=== PATIENT | female | born 1970 | race Caucasian/White ===

== ENCOUNTER 2018-06-12 19:30 | Inpatient (IN) | payer BC, OTHER ==
[~2018-06-12] VITALS: Ht 170.2 cm; Wt 66.2 kg
--- NOTE | 2018-06-12 19:47 | NUR ---
PT TO ER BED 5. BIBRA FROM HOME FOR OVERDOSE OF TRAZADONE X 10 PILLS. AT BEDSIDE. STATES PT HAD BEEN SLEEPING SINCE 1300 TODAY, HE WENT IN A HOUR AGO TO TRY TO WAKE HER UP. STATES PATIENT WAS HARD TO WAKE UP. NOTED PATIENT EYES ARE OPEN AND WILL LOOK AT YOU WHEN YOU SPEAK TO HER BUT PATIENT WILL NOT RESPOND TO QUESTIONS OR COMMANDS. PT BROTHER STATES PT HAS THREATEN SUICIDE BY TAKING PILLS IN THE PAST. FAMILY STATES PT LOST HER FATHER LAST YEAR AND PT MOTHER RECENTLY ENTERED REHAB, STATES PATIENT HAS BEEN UNDER ALOT OF STRESS LATELY. PT PLACED ON MANAGER KNOWLEDGE. VSS/RESP EVEN UNLABORED/NAD NOTED/SKIN WARM AND DRY/AFEBRILE/DENIES N-V-D. TARIKITJOEY MCKENZIE.
[2018-06-12] MEDS ORDERED: IV NS 0.9% 1,000 ML BAG IV ONE (20:00)
--- NOTE | 2018-06-12 20:03 | NUR ---
XRAY AT BEDSIDE.
--- NOTE | 2018-06-12 20:07 | NUR ---
RT AT BEDSIDE FOR ABG.
--- NOTE | 2018-06-12 20:09 | NUR ---
EMT AT BEDSIDE FOR EKG.
--- NOTE | 2018-06-12 20:11 | NUR ---
LAB AT BEDSIDE FOR DRAW.
[2018-06-12 20:19] LABS: ABG BASE EXCESS 0.8 mmol/L; ABG PH 7.404 (7.350-7.450); ABG PO2 79.5 mmHg (75.0-100.0); AaDO2 19.9 mmHg; COHb 0.7 % (0.5-1.5); MetHb 0.4 % (0.0-1.5); SITE, ABG Right Radial; VENT MODE, BG ROOM AIR
--- NOTE | 2018-06-12 20:20 | NUR ---
16 FR quiros catheter inserted per sterile protocal. Immediate output 0 ML of urine. RN to monitor urine output.
[2018-06-12 20:21] LABS: BASOPHILS # (AUTO) 0.1 /CMM (0.0-0.2); BASOPHILS % (AUTO) 0.8 % (0.0-2.0); HEMATOCRIT 47 % (33-45); HEMOGLOBIN 15.6 g/dL (11.5-14.8); MEAN CORPUSCULAR HEMOGLOBIN 31 PG (26.0-33.0); MEAN CORPUSCULAR HGB CONC 33 g/dl (31.0-36.0); MEAN CORPUSCULAR VOLUME 93 fL (82-100); MONOCYTES # (AUTO) 0.8 /CMM (0.1-1.30); NEUTROPHILS # (AUTO) 4.8 /CMM (1.8-8.9); NEUTROPHILS % (AUTO) 63.2 % (43.0-81.0); PLATELET COUNT (AUTO) 206 /CMM (150-450); RDW COEFFICIENT OF VARIATION 11.8 (11.5-15.0); RED BLOOD CELL COUNT(AUTO) 5.05 MIL/uL (4.0-5.2); WHITE BLOOD COUNT (AUTO) 7.8 K/uL (4.3-11.0)
[2018-06-12 20:33] LABS: CALCIUM, SERUM 9.2 mg/dL (8.5-10.1); CARBON DIOXIDE 28 mmol/L (21-32); CHLORIDE 105 mmol/L (98-107); CREATININE 0.9 mg/dL (0.6-1.3); GLUCOSE 100 mg/dL (74-106); POTASSIUM 3.7 mmol/L (3.5-5.1); SODIUM SERUM 139 mmol/L (136-145); UREA NITROGEN, BLOOD 19 mg/dL (7-18)
[2018-06-12 20:36] LABS: INR 0.96 (0.85-1.15)
[2018-06-12 20:40] LABS: TROPONIN I < 0.017 ng/mL (0.00-0.056)
--- NOTE | 2018-06-12 20:40 | NUR ---
PT TO CT VIA STRETCHER, VSS.
[2018-06-12 20:42] LABS: ALANINE AMINOTRANSFERASE 22 U/L (12-78); ALBUMIN 3.7 g/dL (3.4-5.0); ALKALINE PHOSPHATASE 59 U/L (46-116); ASPARTATE AMINOTRANSFERASE 18 U/L (15-37); BILIRUBIN,DIRECT 0.1 mg/dL (0.0-0.2); BILIRUBIN,TOTAL 0.4 mg/dL (0.2-1.0); TOTAL PROTEIN, SERUM 7.6 g/dL (6.4-8.2)
[2018-06-12 20:43] LABS: ACETAMINOPHEN < 2 ug/ml (10-30); ALCOHOL, BLOOD < 3 mg/dL (0-0); SALICYLATE 1.8 mg/dL (2.8-20.0)
--- NOTE | 2018-06-12 20:50 | NUR ---
URINE SPECIMEN OBTAINED AND SENT TO THE LAB.
--- NOTE | 2018-06-12 21:03 | NUR ---
ICU 258
[2018-06-12] MEDS ORDERED: TRAZ-182 PO (21:09)
[2018-06-12 21:11] LABS: APPEARANCE,URINE Clear (CLEAR); BILIRUBIN,URINE Negative (NEGATIVE); BLOOD, URINE Moderate Ery/uL (NEGATIVE); COLOR,URINE Yellow (YELLOW); KETONES,URINE Negative (NEGATIVE); LEUKOCYTE ESTERASE ,URINE Negative (NEGATIVE); NITRITE, URINE Negative (NEGATIVE); PROTEIN,URINE Negative (NEGATIVE); UGLUCOSE Negative (NEGATIVE); UROBILINOGEN,URINE 0.2 EU/dL (0.2)
--- NOTE | 2018-06-12 21:22 | NUR ---
REPORT GIVEN TO ED, RN IN ICU FOR MARIO.
--- NOTE | 2018-06-12 22:00 | NUR ---
PT TRANSPORTED TO ICU BED 258 VIA STRETCHER ON LAPPING MACHINE TENDER WITH RN PER ACLS PROTOCOL, VSS.
[2018-06-12 22:06] VITALS: BP_SYST 133; BP_DIAS 29; BP_DIAS 40
[2018-06-12 22:09] LABS: BACTERIA,URINE None seen /HPF (None Seen)
[2018-06-12 22:10] LABS: SQUAMOUS EPITHELIAL CELL,UR Few /HPF (None Seen); WBC,URINE 0-2 /HPF (0-3)
[2018-06-12] MEDS ORDERED: IV D5/0.45 NACL 1,000 ML IV PRN (22:51)
[2018-06-12 23:00] VITALS: BP 102/66
[2018-06-12] MEDS ORDERED: ONDANSETRON HCL/PF 4 MG/2 ML VIAL IVP PRN (23:00)
[2018-06-12] MEDS ORDERED: Z GUARD REMEDY 2 OZ OINT TP PRN (23:00)
[2018-06-12] MEDS ORDERED: ACETAMINOPHEN 325 MG TABLET PO PRN (23:00)
[2018-06-12 23:30] VITALS: BP 105/64
[2018-06-13] VITALS (25 sets, daily range): BP systolic 91–130; BP diastolic 50–65
--- NOTE | 2018-06-13 03:40 | NUR ---
PACKAGE HANDLER PT WAS ADMITTED FROM ER WITH DIAGNOSIS DRUG OD. SHE TOOK AT HOME UNKNOWN AMT. OF TRAZODONE. CT HEAD IS NEGATIVE. DRUG SCREEN IS POSITIVE FOR BENZODIAZEPINES. NS IV BOLUS 2000 ML GIVEN IN ER. PT DENIES PAIN, SOB OR ANY OTHER DISCOMFORT. PT IS DROWSY, OPENS EYES TO VOICE, FOLLOWS COMMANDS. ZACK, SPEECH IS SLURRED, ALL EXTREMITIES ARE WEAK. LUNGS ARE CLEAR. O2-3L VIA N/C. SCOPE: SR-SB. AFEBRILE. PT HAS IV ACCESS- RIGHT AC & RIGHT HAND-BOTH GAUGE # 20. MAIN IVNS @ 75 MLS/HR. F/C DRAINS SUFFICIENT AMT. OF CLEAR YELLOW URINE. SKIN IS INTACT. PT IS STABLE ENOUGH TO BE DOWNGRADED.
[2018-06-13 04:38] LABS: BASOPHILS % (AUTO) 0.5 % (0.0-2.0); EOSINOPHILS % (AUTO) 0.8 % (0.0-6.0); HEMATOCRIT 40 % (33-45); HEMOGLOBIN 13.3 g/dL (11.5-14.8); LYMPHOCYTES # (AUTO) 1.6 /CMM (0.8-4.8); LYMPHOCYTES % (AUTO) 24.1 % (20.0-44.0); MEAN CORPUSCULAR HEMOGLOBIN 32 PG (26.0-33.0); MEAN CORPUSCULAR HGB CONC 33 g/dl (31.0-36.0); MEAN CORPUSCULAR VOLUME 96 fL (82-100); MONOCYTES # (AUTO) 0.6 /CMM (0.1-1.30); MONOCYTES % (AUTO) 9.7 % (2.0-12.0); NEUTROPHILS # (AUTO) 4.3 /CMM (1.8-8.9); NEUTROPHILS % (AUTO) 64.9 % (43.0-81.0); PLATELET COUNT (AUTO) 168 /CMM (150-450); RDW COEFFICIENT OF VARIATION 12.9 (11.5-15.0); RED BLOOD CELL COUNT(AUTO) 4.19 MIL/uL (4.0-5.2); WHITE BLOOD COUNT (AUTO) 6.6 K/uL (4.3-11.0)
[2018-06-13 05:00] LABS: BILIRUBIN,TOTAL 0.5 mg/dL (0.2-1.0); CALCIUM, SERUM 8.3 mg/dL (8.5-10.1); CREATININE 0.7 mg/dL (0.6-1.3); PHOSPHORUS 3.4 mg/dL (2.5-4.9); POTASSIUM 3.5 mmol/L (3.5-5.1); TOTAL PROTEIN, SERUM 6.6 g/dL (6.4-8.2)
[2018-06-13 05:30] LABS: THYROID STIMULATING HORMONE 1.294 uIU/mL (0.358-3.74)
--- NOTE | 2018-06-13 07:10 | NUR ---
RN INITIAL NOTES: Rec'd pt asleep on bed, arousable but drowsy, oriented x 2. On NC/2lpm, no SOB. Pt denies hurting herself at this time. On telemonitor, SB 58bpm. Has 2 IV line access: R hand G20, SL & R AC G20 PL w/ D5 1/2 NS x 75 cc/hr infusing well, both no s/sx of infection/infiltration noted. Has FC draining to BSB, yellowish urine output. Provided comfort & safety environment. Call light placed w/in reach. Bed kept low & in locked pos. Will cont to monitor & attend pt needs.
[2018-06-13] MEDS ORDERED: TRAZ-182 PO (07:28)
[2018-06-13] MEDS ORDERED: ALPR1TAB2 PO (07:28)
[2018-06-13] MEDS ORDERED: ESCI5TAB PO (07:28)
[2018-06-13] MEDS: ENOXAPARIN SODIUM 40 MG/0.4 ML DISP.SYRIN SQ SCH (10:08)
--- NOTE | 2018-06-13 10:30 | NUR ---
& brother looking for Trazadone medications that was handed over last night at ER dept. Called pharmacy & spoke w/ Regina said that no drug was endorsed to them. Called ER, spoke w/ Sheila said that there were no Trazdone meds seen. Family made aware of this. Showed them the belonging list that there were no Trazadone endorsed in ICU. Spoke w/ & brother, said that pt did not take Trazadone. They said it were Xanax & Lexapro. This was also confirmed w/ the pt. Per pt, she took 20 pcs Xanax 1 mg & 10 pcs Lexapro 5mg. Pt verbalized that she has no intention of hurting herself. She said she just misses her father who recently. This was communicated w/ ROSANA Banks FRAMING MILL OPERATOR HELPER also ordered to DC current IVF.
--- NOTE | 2018-06-13 12:00 | NUR ---
Pt seen & examined by ROSANA Banks spoke w/ the at bedside. Pt to stay in ICU for now. Per ICU SPECIALIST maintain fluid restriction of 1L.
--- NOTE | 2018-06-13 18:37 | NUR ---
Pt seen & examined by Dr. Albarran. All concerns answered during interview. Per MD pt is cleared on his perspective. at bedside.
--- NOTE | 2018-06-13 18:38 | NUR ---
RN CLOSING NOTES: No acute changes noted. Pt is more A/O x 3, denies any suicidal ideation. On room air, no SOB. On telemonitor, SR/SB. 2 IV line access: R hand G20, SL & RAC G20 kept patent & intact, both no s/sx of infection/infiltration noted. FC draining to BSB, yellowish urine output. Kept well rested. Call light placed w/in reach. Bed kept low & in locked pos. Will endorsed to PM RN for MARIO. RX for pysch meds filed in pt's chart c/o Dr. Albarran.
--- NOTE | 2018-06-13 19:30 | NUR ---
MANAGER MARKET DEVELOPMENT INITIAL NOTE RECEIVED PATIENT AWAKE A/OX4, ABLE TO MAKE NEEDS KNOWN. AT BEDSIDE. EXPRESSED CONCERN REGARDING IF PATIENT WILL BE DISCHARGED TOMORROW DT HIS WORK IS IN [employer] AND HE WILL BE THE ONE TO PICK HER UP IF SHE IS DISHCARGED. REASSURED HIM NURSE IN THE MORNING WILL INFORM WHEN PATIENT RECEIVES DISCHARGE ORDERS. PATIENT SPEECH MINIMALLY SLOW. DENIES PAIN OR DISCOMFORT. DENIES SOB. SKIN WARM AND DRY TO TOUCH. ON MONITOR SB 54. F/C PATENT, INTACT, DRAINING BY GRAVITY, CLEAR, YELLOW OUTPUT. HOB ELEVATED. SIDE RAILS UP AND LOCKED. BED KEPT AT LOWEST POSITION, CALL LIGHT KEPT WITHIN EASY REACH. WILL CONTINUE TO MONITOR.
[2018-06-13] MEDS: TRAZODONE 50 MG TABLET PO SCH (21:39)
--- NOTE | 2018-06-13 21:41 | NUR ---
SHIP ENGINEER NOTE PATIENT REFUSED TRAZODONE, STATES SHE DOES NOT NEED IT AT THIS TIME.
[2018-06-13] MEDS ORDERED: TRAZODONE 50 MG TABLET PO SCH (22:00)
[2018-06-14] VITALS (24 sets, daily range): BP systolic 90–118; BP diastolic 31–84
--- NOTE | 2018-06-14 04:23 | NUR ---
MANAGER PAYMENT NOTE PATIENT RESTING COMFORTABLY, REFUSING BED BATH AND LINEN CHANGE.
[2018-06-14 04:31] LABS: BASOPHILS % (AUTO) 0.6 % (0.0-2.0); EOSINOPHILS % (AUTO) 1.4 % (0.0-6.0); HEMATOCRIT 45 % (33-45); LYMPHOCYTES # (AUTO) 1.7 /CMM (0.8-4.8); LYMPHOCYTES % (AUTO) 25.3 % (20.0-44.0); MEAN CORPUSCULAR HEMOGLOBIN 32 PG (26.0-33.0); MEAN CORPUSCULAR HGB CONC 33 g/dl (31.0-36.0); MEAN CORPUSCULAR VOLUME 95 fL (82-100); MONOCYTES # (AUTO) 0.6 /CMM (0.1-1.30); MONOCYTES % (AUTO) 8.2 % (2.0-12.0); NEUTROPHILS # (AUTO) 4.3 /CMM (1.8-8.9); NEUTROPHILS % (AUTO) 64.5 % (43.0-81.0); PLATELET COUNT (AUTO) 186 /CMM (150-450); RDW COEFFICIENT OF VARIATION 12.6 (11.5-15.0); RED BLOOD CELL COUNT(AUTO) 4.75 MIL/uL (4.0-5.2); WHITE BLOOD COUNT (AUTO) 6.7 K/uL (4.3-11.0)
[2018-06-14 04:47] LABS: CALCIUM, SERUM 9.1 mg/dL (8.5-10.1); CREATININE 0.8 mg/dL (0.6-1.3)
--- NOTE | 2018-06-14 05:49 | NUR ---
COOK SEAFOOD NOTE PATIENT C/O HAVING A HEADACHE. PRN TYLENOL GIVEN. WILL CONTINUE TO MONITOR.
--- NOTE | 2018-06-14 06:30 | NUR ---
PRIMARY CARE PEDIATRICIAN NOTE TYLENOL EFFECTIVE, PATIENT STATES SHE FEELS MUCH BETTER. WILL CONTINUE TO MONITOR.
--- NOTE | 2018-06-14 06:52 | NUR ---
COMPUTER SYSTEMS ANALYST CLOSING NOTE NO SIGNIFICANT CHANGES OVERNIGHT. NO SOB. NO C/O PAIN OR DISCOMFORT. ON RA. F/C PATENT, INTACT, DRAINING BY GRAVITY. INDEPENDENT WITH SELF CARE. REFUSED BED BATH AND LINEN CHANGE. SIDE RAILS UP AND LOCKED. BED KEPT AT LOWEST POSITION. CALL LIGHT KEPT WITHIN EASY REACH. WILL ENDORSE CONTINUITY OF CARE TO AM NURSE.
--- NOTE | 2018-06-14 07:58 | NUR ---
INITIAL CAUSTIC LOADER NOTE RCVD PT AWAKE AND ALERT, SHOWING NO S/O DISTRESS/PAIN. SB ON TELE ON RA TOLERATING WELL. SANDERS TO GRAVITY DRAINING CLEAR, YELLOW URINE. IV SITES C/D/I/PATENT, NO S/O INFILTRATION/PHLEBITIS OBSERVED UPON FLUSHING. CALL LIGHT WITHIN REACH. BED IN LOW AND LOCKED POSITION. WILL CONTINUE TO MONITOR PT FOR SAFETY AND COMFORT.
[2018-06-14] MEDS: VENLAFAXINE XR 37.5 MG CAP.SR.24H PO SCH ×2 (08:56→17:59)
[2018-06-14] MEDS: clonazePAM 0.5 MG TABLET PO SCH ×3 (08:56→17:59)
[2018-06-14] MEDS ORDERED: VENLAFAXINE XR 37.5 MG CAP.SR.24H PO SCH (09:00)
[2018-06-14] MEDS: ENOXAPARIN SODIUM 40 MG/0.4 ML DISP.SYRIN SQ SCH (09:13)
--- NOTE | 2018-06-14 10:15 | NUR ---
SENIOR ANALYTICAL CHEMIST NOTE ROSANA GRAHAM CONTACTED REGARDING POSSIBLE DC OF SANDERS CATH, HE AGREED. SANDERS DC ORDERED. PT ABLE TO AMBULATE TO BATHROOM WITH STEADY GAIT, RN SUPERVISION. PT REPORTED TO HAVE VOIDED WITHOUT DIFFICULTY.
--- NOTE | 2018-06-14 18:49 | NUR ---
IT CORPORATE RECRUITER NOTE PT REMAINS STABLE PENDING BED AVAILABILITY TO TRANSFER HER TO MED-SURG UNIT. SR ON TELE, ALERT/ORIENTED, ON RA TOLERATING WELL, IV SITES C/D/I/PATENT. NO S/O INFILTRATION/PHLEBITIS OBSERVED UPON FLUSHING. TOLERATING DIET WELL. PT'S CARE WILL BE ENDORSED TO STUDENT EDUCATION SPECIALIST RN FOR CONTINUITY OF CARE. BED IN LOW AND LOCKED POSITION. CALL LIGHT WITHIN REACH.
--- NOTE | 2018-06-14 20:10 | NUR ---
RN NOTES TRANSFER PT TO MED SURG ROOM 203. PT IS AOX 4 NO SOB OR RESPIRATORY DISTRESS IN ROOM AIR. AFEBRILE. VSS. AMBULATE TO THE BATHROOM INDEPENDENTLY. DENIES PAIN OR DIZZINESS. S/E BY PSYCHE BEFORE PT LEFT TO ICU. FAMILY AT BEDSIDE. KEPT PT CLEAN AND DRY. ENDORSED CONTINUITY OF CARE TO MED/SURG NURSE.
--- NOTE | 2018-06-14 20:15 | NUR ---
RN NOTES RECEIVED PATIENT FROM ICU. PATIENT AO X 3, ABLE TO MAKE NEEDS KNOWN. NO ACUTE DISTRESS NOTED. DENIES ANY PAIN AT THIS TIME. SKIN INTACT. IV SITES PATENT, INTACT; FLUSHED. SAFETY REMINDERS GIVEN. ON LOW BED WITH BILATERAL UPPER SIDE RAILS UP. CALL LYMAN WITHIN EASY REACH. WILL CONTINUE TO MONITOR.
[2018-06-14] MEDS: TRAZODONE 50 MG TABLET PO SCH (21:59)
--- NOTE | 2018-06-15 06:14 | NUR ---
RN NOTES PATIENT ASLEEP, EASILY AROUSABLE. RESPIRATIONS EVEN. NO SIGNS OF PAIN NOTED. DUE MED GIVEN ORDERED. NEEDS ATTENDED. SAFETY PRECAUTIONS AND COMFORT MEASURES IN PLACE. WILL GIVE REPORT TO DAY SHIFT FOR CONTINUITY OF CARE.
[2018-06-15 07:27] LABS: BASOPHILS % (AUTO) 0.4 % (0.0-2.0); EOSINOPHILS % (AUTO) 1.4 % (0.0-6.0); HEMATOCRIT 44 % (33-45); HEMOGLOBIN 14.6 g/dL (11.5-14.8); LYMPHOCYTES # (AUTO) 1.9 /CMM (0.8-4.8); LYMPHOCYTES % (AUTO) 28.7 % (20.0-44.0); MEAN CORPUSCULAR HEMOGLOBIN 31 PG (26.0-33.0); MEAN CORPUSCULAR HGB CONC 33 g/dl (31.0-36.0); MEAN CORPUSCULAR VOLUME 96 fL (82-100); MONOCYTES # (AUTO) 0.6 /CMM (0.1-1.30); MONOCYTES % (AUTO) 9.6 % (2.0-12.0); NEUTROPHILS % (AUTO) 59.9 % (43.0-81.0); PLATELET COUNT (AUTO) 196 /CMM (150-450); RDW COEFFICIENT OF VARIATION 12.7 (11.5-15.0); RED BLOOD CELL COUNT(AUTO) 4.64 MIL/uL (4.0-5.2); WHITE BLOOD COUNT (AUTO) 6.7 K/uL (4.3-11.0)
--- NOTE | 2018-06-15 07:30 | NUR ---
PT RECEIVED RESTING COMFORTABLY IN BED. NO S/S OR C/O PAIN OR DISTRESS NOTED. SIDERAILS UP X2, CALL LIGHT LEFT WITHIN REACH. WILL CONTINUE PLAN OF CARE.
[2018-06-15 07:41] LABS: CALCIUM, SERUM 8.8 mg/dL (8.5-10.1); CREATININE 0.9 mg/dL (0.6-1.3)
[2018-06-15 08:00] VITALS: BP 97/51
[2018-06-15] MEDS ORDERED: CALCIUM CARBONATE (1250) 500 MG TABLET PO SCH (09:00)
[2018-06-15] MEDS: VENLAFAXINE XR 37.5 MG CAP.SR.24H PO SCH (09:11)
[2018-06-15] MEDS: clonazePAM 0.5 MG TABLET PO SCH (09:11)
[2018-06-15] MEDS: ENOXAPARIN SODIUM 40 MG/0.4 ML DISP.SYRIN SQ SCH (09:12)
[2018-06-15] MEDS ORDERED: CLON0.5T12 PO (11:06)
[2018-06-15] MEDS ORDERED: VENL37.55 PO (11:06)
[2018-06-15] MEDS ORDERED: TRAZ-213 PO (11:06)
--- NOTE | 2018-06-15 13:00 | NUR ---
DISCHARGE INSTRUCTIONS GIVEN ORDERED. ENCOURAGED TO FOLLOW UP WITH PMD INSTRUCTED. ALL QUESTIONS AND CONCERNS ADDRESSED. PATIENT VERBALIZED UNDERSTANDING. MEDICATION RECONCILIATION FORM COMPLETED AND COPY GIVEN TO PATIENT. IV REMOVED WITH CATHETER INTACT, PRESSURE DRESSING APPLIED. PATIENT TAKEN TO VEHICLE WITH ALL PERSONAL BELONGINGS, ACCOMPANIED BY STAFF AND FAMILY MEMBER. NO DISTRESS NOTED AT TIME OF DEPARTURE.
== END 2018-06-15 13:00 | disposition home or self-care (01) | DRG 917 ==
LOC: ER 19:31 → ICU 21:16 → EDBD 21:16 → MEDSG2 06-14 20:08
PROVIDERS: ADMIT Nurse Practitioner Acute Care; ATTEND Nurse Practitioner Acute Care
DX: T43.211A Poisoning by selective serotonin and norepinephrine reuptake inhibitors, accidental (unintentional), initial encounter (principal); G92 Toxic encephalopathy; E87.1 Hypo-osmolality and hyponatremia; E88.09 Other disorders of plasma-protein metabolism, not elsewhere classified; E83.51 Hypocalcemia; D64.9 Anemia, unspecified; Z88.4 Allergy status to anesthetic agent; Z88.5 Allergy status to narcotic agent; E86.0 Dehydration; F32.9 Major depressive disorder, single episode, unspecified; Z98.890 Other specified postprocedural states; Y92.008 Other place in unspecified non-institutional (private) residence as the place of occurrence of the external cause; F41.0 Panic disorder [episodic paroxysmal anxiety]
CPT/HCPCS: 36415; 36600; 70450-TC; 71045-TC; 80048-TC; 80053-TC; 80061-TC; 80076-TC; 80305; 81000-TC; 82803-TC; 83735-TC; 84100-TC; 84443-TC; 84484-TC; 85025-TC; 85730-TC; 87081-TC; A4606; G0480; J1650; J3490; J7030; Z7610